=== PATIENT | male | born 1990 | race Caucasian/White ===

== ENCOUNTER → 2017-11-16 08:37 | Outpatient (CLI) | payer MEDICAID, SELFPAY ==
--- NOTE | 2017-11-16 08:50 | XR_ITS ---
XR shoulder RT min 2V HISTORY: ITS.REASON: RIGHT SHOULDER PAIN ORDERING PHYSICIAN: Nicolas Hood MD PATIENT AGE: 27 years Comparison: None FINDINGS: No fracture or dislocation. No lytic or blastic change. There is normal mineralization. The joint spaces are well-preserved. No significant degenerative/arthritic changes. No erosive changes evident. IMPRESSION: Negative, no acute finding
== END ==
PROVIDERS: Visit Provider Orthopaedic Surgery
DX: M25.511 Pain in right shoulder (principal)
CPT/HCPCS: 73030

== ENCOUNTER 2017-11-27 07:00 | Outpatient (RCR) | payer MEDICAID, SELFPAY ==
--- NOTE | 2017-11-20 13:51 | HMH.OTOPEV ---
OT Inpatient Evaluation Rehab OT Outpatient Eval Start: 11/20/17 13:28 Freq: Status: Active Protocol: Document 11/20/17 13:29 TFRY (Rec: 11/20/17 13:46 TFRY [id number]) Electronically Signed By Teresa Warner OT 11/20/17 13:29 Outpatient Therapy Subjective History Subjective History THIS IS A 27 YEAR OLD LEFT HANDED MALE REFERRED TO OCCUPATIONAL THERAPY FOR ROTATOR CUFF TENDINOPATHY, BICEPS TENDONTIS RIGHT SHOULDER. PATIENT REPORTS THAT HIS SHOULDER HAS BEEN HURTING FOR THE PAST 2 MONTHS. Chief Complaint Pain Symptom Type Ache Sharp Burning Symptoms Relieved By Rest/Positioning Symptoms Aggravated By Physical Activity Lifting Prior Functional Limitations None Current Functional Limitations Reaching Lifting Symptom Description Activity Dependent Level of pain today (0-10) 0 Pain scale - at its best (0-10) 0 Pain scale - at its worst (0-10) 7 Shoulder/Elbow Eval Shoulder Objective Measurements Palpation Tenderness tenderness over the bicipital tendon right shoulder exam standard Shoulder Palpation Findings Tenderness Shoulder ROM Right Shoulder ROM Limitations Pain Shoulder Abduction Active Range of 140 Motion (degrees) Shoulder Abduction Passive Range of WFL Motion (degrees) Shoulder Flexion Active Range of Motion 65 (degrees) Query Text: Shoulder Flexion Passive Range of Motion 90 (degrees) Shoulder External Rotation Active Range 70 of Motion (degrees) Shoulder External Rotation Passive Range WFL of Motion (degrees) Shoulder Internal Rotation Active Range 25 of Motion (degrees) Shoulder Internal Rotation Passive Range 45 of Motion (degrees) pain with active ROM shoulder exam right standard pain with passive ROM shoulder exam right standard decreased ROM shoulder exam standard right Shoulder MMT Shoulder Abduction Strength Grade 3+ Fair+ Shoulder Extension Strength Grade 3+ Fair+ Shoulder Flexion Strength Grade 3- Fair- Shoulder External Rotation Strength 3 Fair Grade Shoulder Internal Rotation Strength 3- Fair- Grade Shoulder Strength Patient Testing Sitting Position Shoulder Special Tests impingement sign present shoulder e
== END 2017-12-25 10:24 | disposition home or self-care (01) ==
LOC: OT 07:00
PROVIDERS: PCP Orthopaedic Surgery; Visit Provider Orthopaedic Surgery
DX: M75.21 Bicipital tendinitis, right shoulder (principal); M67.911 Unspecified disorder of synovium and tendon, right shoulder; M25.311 Other instability, right shoulder; M25.511 Pain in right shoulder; G89.29 Other chronic pain
CPT/HCPCS: 97033; 97110; 97165